=== PATIENT | male | born 1980 | race Caucasian/White ===

== ENCOUNTER 2017-04-08 16:41 | Emergency (ER) | payer BC ==
[~2017-04-08] VITALS: Ht 175.3 cm; Wt 121.1 kg
[~2017-04-08 16:41] MED LIST: FLOMAX0.4 MG PO; PERCOCET 5/31 TABLET PO; ZOFRAN ODT4 MG PO; ZOFRAN ODT8 MG PO
[2017-04-08 19:07] LABS: HEMATOCRIT 48.1 % (38.0-50.0); MCH 29.3 PG (29.0-34.0); MCHC 34.1 G/DL (30.0-36.0); RBC DIS.WIDTH-CV 13.1 % (11.8-14.6); RBC DIS.WIDTH-SD 40.7 % (39-53); RED BLOOD COUNT 5.59 M/uL (4.00-5.50); WHITE BLOOD COUNT 6.9 K/uL (4.1-10.2)
[2017-04-08 19:33] LABS: CHLORIDE 108 mEq/L (99-109); POTASSIUM 4.8 mEq/L (3.7-5.4)
[2017-04-08 19:34] LABS: SODIUM 142 mEq/L (136-147)
[2017-04-08 19:35] LABS: GLUCOSE 93 mg/dL (70-99)
[2017-04-08 19:37] LABS: ANION GAP 9 MEQ/L (2-14)
[2017-04-08 19:39] LABS: GFR ESTIMATE (CALCULATED) > 59 mL/min/
[2017-04-08 19:40] LABS: UREA NITROGEN (BUN) 18 mg/dL (9-23)
[2017-04-08 20:03] LABS: PLAT.SUFFICIENCY ADEQUATE; PLATELET CLUMPS PRESENT - PLATELET COUNT APPEARS ADQ.; PLATELET COUNT UNABLE TO REPORT K/uL (156-360)
[2017-04-08 20:49] LABS: HEMATOCRIT 49.2 % (38.0-50.0); MCH 29.4 PG (29.0-34.0); MCHC 34.1 G/DL (30.0-36.0); MCV 86.2 FL (86-99); MEAN PLAT.VOLUME 12.5 uM^3 (9.0-12.4); PLATELET COUNT 217 K/uL (156-360); RBC DIS.WIDTH-CV 13.2 % (11.8-14.6); RBC DIS.WIDTH-SD 41.1 % (39-53); RED BLOOD COUNT 5.71 M/uL (4.00-5.50); WHITE BLOOD COUNT 7.4 K/uL (4.1-10.2)
[2017-04-08 20:58] LABS: CHLORIDE 107 mEq/L (99-109); POTASSIUM 4.6 mEq/L (3.7-5.4); SODIUM 143 mEq/L (136-147)
[2017-04-08 20:59] LABS: GLUCOSE 91 mg/dL (70-99)
[2017-04-08 21:01] LABS: ANION GAP 9 MEQ/L (2-14)
[2017-04-08 21:03] LABS: GFR ESTIMATE (CALCULATED) > 59 mL/min/
[2017-04-08 21:04] LABS: UREA NITROGEN (BUN) 17 mg/dL (9-23)
[2017-04-08 23:39] VITALS: BP 110/85
== END 2017-04-08 23:40 | disposition home or self-care (01) ==
LOC: EME 16:41
PROVIDERS: Nurse Practitioner Family
DX: Q28.2 Arteriovenous malformation of cerebral vessels (principal); Z87.442 Personal history of urinary calculi
CPT/HCPCS: 70450; 70553; 71020; 80048; 80048 91; 85027; 93005; 99281; 99284; J1200; J1885; J7030

== ENCOUNTER 2017-07-06 17:55 | Emergency (ER) | payer BC ==
[~2017-07-06] VITALS: Ht 175.3 cm; Wt 112.0 kg
[2017-07-06 19:06] LABS: HEMATOCRIT 40.6 % (38.0-50.0); MCH 29.8 PG (29.0-34.0); MCHC 34.2 G/DL (30.0-36.0); MCV 87.1 FL (86-99); MEAN PLAT.VOLUME 12.3 uM^3 (9.0-12.4); PLATELET COUNT 201 K/uL (156-360); RBC DIS.WIDTH-CV 13.1 % (11.8-14.6); RBC DIS.WIDTH-SD 41.1 % (39-53); RED BLOOD COUNT 4.66 M/uL (4.00-5.50); WHITE BLOOD COUNT 10.6 K/uL (4.1-10.2)
[2017-07-06 19:22] LABS: CHLORIDE 111 mEq/L (99-109); POTASSIUM 4.1 mEq/L (3.7-5.4); SODIUM 138 mEq/L (136-147)
[2017-07-06 19:24] LABS: GLUCOSE 95 mg/dL (70-99)
[2017-07-06 19:25] LABS: ANION GAP 4 MEQ/L (2-14)
[2017-07-06 19:26] LABS: TOTAL BILIRUBIN 0.8 mg/dL (0.0-1.0)
[2017-07-06 19:28] LABS: ALKALINE PHOSPHATASE 69 IU/L (3-129); GFR ESTIMATE (CALCULATED) > 59 mL/min/
[2017-07-06 19:29] LABS: UREA NITROGEN (BUN) 18 mg/dL (9-23)
[2017-07-06 19:35] LABS: ADD MIUA? NO; BILIRUBIN NEGATIVE; BLOOD NEGATIVE; COLOR YELLOW ((YELLOW)); GLUCOSE (STRIP) NEGATIVE; KETONES NEGATIVE; LEUKOCYTES NEGATIVE; NITRITE NEGATIVE; PROTEIN (STRIP) NEGATIVE; SPECIFIC GRAVITY 1.024 (1.000-1.030); UCUL ADDED? NO; UROBILINOGEN 0.2 MG/DL (0.2-1.0)
[2017-07-06 19:38] LABS: AMPHETAMINE NEGATIVE (500 ng/mL); BARBITURATES NEGATIVE (200 ng/mL); BENZODIAZEPINES NEGATIVE (150 ng/mL); COCAINE NEGATIVE (150 ng/mL); INTERNAL CONTROLS VALID? YES; METHADONE NEGATIVE (200 ng/mL); METHAMPHETAMINE NEGATIVE (500 ng/mL); OPIATES (MORPHINE) NEGATIVE (100 ng/mL); OXYCODONE NEGATIVE (100 ng/mL); PHENCYCLIDINE NEGATIVE (25 ng/mL); PROPOXYPHENE NEGATIVE (300 ng/mL); THC CANNABINOIDS NEGATIVE (50 ng/mL); TRICYCLIC ANTIDEPRESSANTS NEGATIVE (300 ng/mL)
[2017-07-06] MEDS ORDERED: DEXAMETHASONE2 MG PO (20:14)
[2017-07-06 21:36] VITALS: BP 100/65
== END 2017-07-06 21:36 | disposition home or self-care (01) ==
LOC: EME 17:55
PROVIDERS: Emergency Medicine; Physician Assistant
DX: T66.XXXA Radiation sickness, unspecified, initial encounter (principal); W88.1XXA Exposure to radioactive isotopes, initial encounter; Y84.2 Radiological procedure and radiotherapy as the cause of abnormal reaction of the patient, or of later complication, without mention of misadventure at the time of the procedure; R11.0 Nausea; R53.1 Weakness; Q27.30 Arteriovenous malformation, site unspecified; I10 Essential (primary) hypertension; J45.909 Unspecified asthma, uncomplicated
CPT/HCPCS: 70450; 80053; 81003; 85027; 99281; 99285; J2405; J7030; J8540

== ENCOUNTER 2018-01-26 00:55 | Emergency (ER) | payer BC ==
[~2018-01-26] VITALS: Ht 175.3 cm; Wt 105.9 kg
[~2018-01-26 00:55] MED LIST changes: +DEXAMETHASONE2 MG PO
[2018-01-26 00:57] VITALS: BP 130/101
[2018-01-26 01:20] LABS: HEMATOCRIT 45.3 % (38.0-50.0); HEMOGLOBIN 15.9 G/DL (12.5-16.6); MCH 30.8 PG (29.0-34.0); MCHC 35.1 G/DL (30.0-36.0); MCV 87.6 FL (86-99); RBC DIS.WIDTH-CV 12.4 % (11.8-14.6); RBC DIS.WIDTH-SD 39.8 % (39-53); RED BLOOD COUNT 5.17 M/uL (4.00-5.50); WHITE BLOOD COUNT 6.3 K/uL (4.1-10.2)
[2018-01-26 01:31] LABS: CHLORIDE 108 mEq/L (99-109); POTASSIUM 4.6 mEq/L (3.7-5.4); SODIUM 142 mEq/L (136-147)
[2018-01-26 02:03] LABS: GLUCOSE 88 mg/dL (70-99)
[2018-01-26 02:07] LABS: GFR ESTIMATE (CALCULATED) > 59 mL/min/ (58.99-99999)
[2018-01-26 02:08] LABS: UREA NITROGEN (BUN) 22 mg/dL (9-23)
[2018-01-26 02:09] LABS: APPEARANCE CLEAR ((CLEAR)); BILIRUBIN NEGATIVE; BLOOD NEGATIVE; COLOR STRAW ((YELLOW)); GLUCOSE (STRIP) NEGATIVE; KETONES NEGATIVE; LEUKOCYTES NEGATIVE; NITRITE NEGATIVE; PROTEIN (STRIP) NEGATIVE; SPECIFIC GRAVITY 1.015 (1.000-1.030); UCUL ADDED? NO; UROBILINOGEN 0.2 MG/DL (0.2-1.0)
[2018-01-26 03:00] LABS: PLATELET COUNT 201 K/uL (156-360)
== END 2018-01-26 04:05 | disposition left against medical advice (07) ==
LOC: EME 00:55
DX: R10.9 Unspecified abdominal pain (principal); Z53.21 Procedure and treatment not carried out due to patient leaving prior to being seen by health care provider
CPT/HCPCS: 80048; 81003; 85027